=== PATIENT | male | born 1985 | race Two or more races ===

== ENCOUNTER 2017-03-07 09:13 | Inpatient (IN) | payer OTHER ==
[~2017-03-07] VITALS: Ht 154.9 cm; Wt 100.7 kg
--- NOTE | ~2017-03-07 | INDIVTXPLN ---
"PATIENT: SILVIO ADHIKARI | | [facility] UNIT #: [id number] | [address] AGE/SEX: 31 M : 83 | [address] | [place] [address] ADMIT/REG DATE: 03/07/17 | ROOM: [facility] LOC: ADTC | ADTC | Individualized Treatment Plan Date: 03/13/17 Problem Statement/Issue Identified: Client continues to use alcohol &/or drugs despite ongoing negative consequences, and he did not reach out to anyone for help, but instead continued to drink/use. Goal: Client will learn how to identify negative consequences of his addiction, attend AA/NA meetings and meet men in recovery. Objectives/Activities to achieve goal: 1. Client is to complete the How to Get Started packet, process it with counselor and selected pages in group. Due Date:03/15/17 Complete: Incomplete: 2. Client is to complete Step 1, process it with counselor and selected pages in group. Due Date:03/20/17 Complete: Incomplete: 3. Client is to attend AA/NA meetings, ask for and get at least 5 names and numbers of men in recovery and share that list with counselor. Due Date:04/04/17 Complete: Incomplete: Client signature Date Counselor signature Date Outcome/Measurement of Progress Towards Goal: Counselor's signature Date "
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
--- NOTE | ~2017-03-07 | INDIVTXPLN ---
"PATIENT: SILVIO ADHIKARI | | [facility] UNIT #: [id number] | [address] AGE/SEX: 31 M : 83 | [address] | [place] [address] ADMIT/REG DATE: 03/07/17 | ROOM: [facility] LOC: ADTC | ADTC | Individualized Treatment Plan Date: 03/27/17 Problem Statement/Issue Identified: Client needs to address criminal thinking, which may help him to identify relapse warning signs and develop a plan to deal with them as they arise, so he can learn to maintain his recovery. Goal: Client will learn how to identify criminal thinking, which will also help him to identify relapse triggers and make a plan of how to maintain his recovery. Objectives/Activities to achieve goal: 1. Client is to complete the My Con Game packet, and process it with counselor. Due Date:04/04/17 Complete: Incomplete: 2. Client is to complete the My Change Plan packet and process it with counselor. Due Date:04/06/17 Complete: Incomplete: 3. Client is to complete the Recovery Management packet, and process what he learns from it with his counselor. Due Date:04/06/17 Complete: Incomplete: Client signature Date Counselor signature Date Outcome/Measurement of Progress Towards Goal: Counselor's signature Date "
--- NOTE | ~2017-03-07 | TXPLANREV ---
"PATIENT: SILVIO ADHIKARI | | [facility] UNIT #: [id number] | [address] AGE/SEX: 31 M : 83 | [address] | [place] [address] ADMIT/REG DATE: 03/07/17 | ROOM: [facility] LOC: ADTC | ADTC | Treatment Plan/Staffing Review Date: 03/27/17 Treatment plan was reviewed and determined appropriate as written: Yes Treatment plan was reviewed and the following changes/addition/deletions are necessary: Client is to continue working on treatment plan assignments. He is working on feelings letters. He will begin working on relapse prevention. Discharge plans were reviewed and determined appropriate as previously documented: No Discharge plans were reviewed and determined to be as follows: Client will benefit from going to sober living, but plans to return home. He will be recommended to do aftercare, attend AA/NA meetings, as well as to get and call a sponsor on a regular basis. Other pertinent issues discussed during this staffing review include: None at this time. Staff Present: Dacia Parmar PRIMARY COUNSELOR: Fauzia Saha Client Signature Counselor Signature Date Time "
--- NOTE | ~2017-03-07 | TXPLANREV ---
"PATIENT: SILVIO ADHIKARI | | [facility] UNIT #: [id number] | [address] AGE/SEX: 31 M : 83 | [address] | [place] [address] ADMIT/REG DATE: 03/07/17 | ROOM: [facility] LOC: ADTC | ADTC | Treatment Plan/Staffing Review Date: 03/20/17 Treatment plan was reviewed and determined appropriate as written: Yes Treatment plan was reviewed and the following changes/addition/deletions are necessary: Client is to continue working on treatment plan assignments. He is working on his feelings letters. Discharge plans were reviewed and determined appropriate as previously documented: No Discharge plans were reviewed and determined to be as follows: Client has been accepted into the [facility], but he is backing out, and stated he doesn't have any money for a deposit, so will be speaking to his audit officer. He will also be recommended to attend 3-5 AA/NA meetings, attend aftercare in outpatient treatment, as well as to get and call a sponsor on a regular basis. Other pertinent issues discussed during this staffing review include: None at this time. Staff Present: Dacia Parmar PRIMARY COUNSELOR: JOVON Viera Client Signature Counselor Signature Date Time "
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
--- NOTE | ~2017-03-07 | TXPLANREV ---
"PATIENT: SILVIO ADHIKARI | | [facility] UNIT #: [id number] | [address] AGE/SEX: 31 M : 83 | [address] | [place] [address] ADMIT/REG DATE: 03/07/17 | ROOM: [facility] LOC: ADTC | ADTC | Treatment Plan/Staffing Review Date: 04/03/17 Treatment plan was reviewed and determined appropriate as written: Yes Treatment plan was reviewed and the following changes/addition/deletions are necessary: Client is to continue working on treatment plan assignments. He is working on relapse prevention. Discharge plans were reviewed and determined appropriate as previously documented: Yes Discharge plans were reviewed and determined to be as follows: Client is fully aware he is being recommended to go to sober living, and that the [facility] did have an opening for him, but he refused. He is also recommended to attend aftercare here with Isaac Angel, beginning on 04/11 @ 9:00. He is to attend 3-5 AA/NA meetings per week, as well as to get and call a sponsor on a regular basis. Other pertinent issues discussed during this staffing review include: None at this time. Staff Present: Dacia Parmar PRIMARY COUNSELOR: JOVON Viera Client Signature Counselor Signature Date Time "
--- NOTE | ~2017-03-07 | INDIVTXPLN ---
"PATIENT: SILVIO ADHIKARI | | [facility] UNIT #: [id number] | [address] AGE/SEX: 31 M : 83 | [address] | [place] [address] ADMIT/REG DATE: 03/07/17 | ROOM: [facility] LOC: ADTC | ADTC | Individualized Treatment Plan Date: 03/20/17 Problem Statement/Issue Identified: Client has learned to deny or stuff feelings; needs to learn to identify and process feelings in a clean/sober manner. Goal: Client will learn how to identify and express feelings in a healthy, clean/sober manner. Objectives/Activities to achieve goal: 1. Client is to write feelings letters to his girlfriend, parents and kids, all separately, and process them with counselor and in family group, if able. Due Date:03/30/17 Complete: Incomplete: Client signature Date Counselor signature Date Outcome/Measurement of Progress Towards Goal: Counselor's signature Date "
--- NOTE | 2017-03-07 10:36 | NUR ---
ADMISSION NOTE Rights/Responsibilities: Copy given and explained to client. Signed and accepted by client. Client oriented to physical lay out of the ADTC unit, given Big Book and admission packet. A Gustabo was assigned. Nitin Client is a 31yr old single male. Referred by probation. Brought to tx by s/o from home in [place], [place]. DOC, Meth, last used 01/05/17, gram daily. No allergies, No meds. S/O will participate in tx. Was searched no contraband found. Initial paperwork given and guidelines gone over. Doctor has been notified.
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
--- NOTE | 2017-03-07 19:06 | NUR ---
Education 1HR: Clt attended lecture given by counselor on boundaries.
--- NOTE | 2017-03-07 22:21 | NUR ---
Tech note: Client did not go on a walk with us as he was getting checked into his room. He was seen by the DR, went to an onsite NA meeting and gave his first intro. SE; entering treatment
--- NOTE | 2017-03-08 04:05 | NUR ---
Bed note: Client was in bed motionless, with eyes closed at all bed checks.
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
--- NOTE | 2017-03-08 15:28 | NUR ---
Tech Note: Client participated in Spiritual Enrichment in the morning and went for an outdoor walk in the afternoon. Client stated that he is working on, "How to Get Started in Treatment."
--- NOTE | 2017-03-08 15:41 | NUR ---
Education 1 Hour: Client watched the video, "Doing a 4th and 5th Step" by Yana Dsouza.
--- NOTE | 2017-03-08 16:07 | NUR ---
Step education/1 hr/ Focus was on step 11 Sought through prayer and meditation to improve conscious contact with God,praying for his will for us and the power to carry that out. Each person completed a set of questions then we discussed. This person participated.
--- NOTE | 2017-03-08 19:12 | NUR ---
Education 1HR: Clt watched half of video "Pleasures Unwoven" with staff present.
--- NOTE | 2017-03-08 23:06 | NUR ---
Tech note: Clt played a game for rec, attended GM and onsite AA mtg. SE was AA mtg
--- NOTE | 2017-03-09 04:24 | NUR ---
Bed Note: Clt lay motionless in bed with eyes closed showing no distress at last two bed checks. The first bed check clt was awake in bed.
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
--- NOTE | 2017-03-09 13:00 | NUR ---
PEER REVIEWS 1 HR: Clt participated in peer reviews and took a risk to give open and honest feedback to those receiving a review.
--- NOTE | 2017-03-09 13:03 | NUR ---
Tech Note: Client is working on Getting Started.
--- NOTE | 2017-03-09 13:18 | NUR ---
Morning Group, /12 ratio, 1.5 hours, Client attended and actively participated in group. Client offered feedback to peers.
--- NOTE | 2017-03-09 15:33 | NUR ---
Education Note: Client watched 2nd half of Pleasure Unwoven.
--- NOTE | 2017-03-09 22:23 | NUR ---
Tech note : Client watched movies, played games with peers and walked to an offsite AA meeting.
--- NOTE | 2017-03-10 04:08 | NUR ---
Bed note: Client was in bed with eyes closed and no distress at all bed checks.
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
--- NOTE | 2017-03-10 12:26 | NUR ---
FAMILY CONTACT: A call was placed to his g/f and a message was left w/ a request that she return my call.
--- NOTE | 2017-03-10 16:28 | NUR ---
Tech Note: Client attended N.A.Panel and is working on Step 1. Client also went on a walk today.
--- NOTE | 2017-03-10 22:17 | NUR ---
Tech note : Client worked on [employer], [employer] or watched sports for rec this evening. Client walked to an offsite AA meeting.
--- NOTE | 2017-03-11 04:06 | NUR ---
Bed note: Client was in bed with eyes closed with no distress at all bed checks
--- NOTE | 2017-03-11 16:41 | NUR ---
Tech Note: Client stated that he is working on Step One.
--- NOTE | 2017-03-11 22:43 | NUR ---
tech note: Client attended onsite AA Panel & CAR SHAKEOUT OPERATOR meeting.Client participated in Community Clean & watched tv. SE: nap.
--- NOTE | 2017-03-12 04:30 | NUR ---
tech note: client was motionless in no distress at all bed checks.
--- NOTE | 2017-03-12 10:18 | NUR ---
Tech Notes: Client is working on Step 1
--- NOTE | 2017-03-12 11:03 | NUR ---
Education Note: Client watched video for education today.
--- NOTE | 2017-03-12 11:30 | NUR ---
GROUP 1.5 HR/ 11:1 Clients heard peer share GS packet and this client was confrontive of peer and wishes he would of taken to treatment at age 20 when there.
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
--- NOTE | 2017-03-12 16:00 | NUR ---
RECOVERY 101 1 HR/ All clients participated in discussing what are the fundamentals of what they learn at AA/NA meetings that will help them succeed in recovery such as meetings, sponsor, home group, working steps, service work, attending functions, slogans/acronyms as tools, etc. This client was involved.
--- NOTE | 2017-03-12 19:15 | NUR ---
Education: 1 Hour. Client attended "Communications" lecture presented by staff.
--- NOTE | 2017-03-12 23:32 | NUR ---
Client attended N.A.Meeting and went on a walk for rec. SE: Walk
--- NOTE | 2017-03-13 04:21 | NUR ---
Bed note: Client was in bed with eyes closed with no distress at all bed checks
--- NOTE | 2017-03-13 11:30 | NUR ---
GROUP 1.5 HRS. 1:9 Group discussion included issues of discharge planning and fear of leaving. This client stated he cannot go to [facility] due to his kids. He was confronted that he will lose his kids anyway if he does not stay clean. Client owned that he has criminal thinking in terms of dealing to pay child support. He shared that he did remain abstinent for a period but was still dealing so was confronted on staying in same lifestyle.
--- NOTE | 2017-03-13 14:00 | NUR ---
CASE MAN: Eliza's PO was called, and we discussed clt's aftercare. We made the decision he will be recommended to go to sober living until he finds and holds a job for a period of at least 60 days.
--- NOTE | 2017-03-13 15:00 | NUR ---
IS 1 HR: Processed eliza's BPS. He went into detail about his family life, and most of the people he is wanting to "protect" are his nephews. He belongs to a well know family in town, and several have gone or are in correction, so he feels the need to help take care of the kids. Eliza heard it's too dangerous for his recovery to worry about them or anyone else, and that he needs to take care of himself and his own children. 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 He did not argue at all.
--- NOTE | 2017-03-13 15:42 | NUR ---
Tech Note: Client participated in light stretching for monring exercise and went for an outdoor walk in the afternoon. Client followed programming.
--- NOTE | 2017-03-13 19:22 | NUR ---
Education note: 1 hour watched video "enabler".
--- NOTE | 2017-03-13 19:32 | NUR ---
education note: 1 hour lecture by [facility] on hiv/aid/std. plus clients wwere tested for HIV.
--- NOTE | 2017-03-13 22:08 | NUR ---
Tech note: Client went for a long walk for rec, participated in guided meditation and attended an onsite AA meeting.
--- NOTE | 2017-03-14 05:30 | NUR ---
Bed note : Client was in bed with eyes closed and no movement at all bed checks.
--- NOTE | 2017-03-14 11:30 | NUR ---
GROUP 1.5 HRS. 1:10 Clients oriented new peer to purpose and rules of group. Peers processed from HOW TO GET STARTED IN TREATMENT and step 1 assignments to identify betraying values and effects on others. This client also had assignment to process but time did not permit.
--- NOTE | 2017-03-14 13:42 | NUR ---
Tech Note: Outside speaker Portillo Hicks spoke at 1300. Client attended and is working on Feelings Letters.
--- NOTE | 2017-03-14 17:28 | NUR ---
SPIRITUAL EDUCATION 1 HR. Topics today were clarifying the differences between spirituality and jehovah's witness, and playing the spiritual challenge game where they are asked thought provoking open ended questions. It is meant to inspire spiritual line of thought.
--- NOTE | 2017-03-14 22:42 | NUR ---
Tech Note : Client participated in rec by playing catch phrase and attended an onsite NA meeting.
--- NOTE | 2017-03-14 23:40 | NUR ---
Education: 1 Hour. Client attended "Disease Concept" presented by counselor.
--- NOTE | 2017-03-15 05:37 | NUR ---
Bed Note: Client was motionless with eyes closed at all bed checks.
--- NOTE | 2017-03-15 10:45 | NUR ---
Tech Note: Client participated in light stretching for morning exercise. Client stated that he is working on Step One. Client was identified during community meeting as one of those who was calling names about a male peer. Client did own the behavior and apologize.
--- NOTE | 2017-03-15 13:38 | NUR ---
PEER REVIEWS 1 HR: Clt participated in peer reviews and took a risk to give open and honest feedback to those receiving a review. The last half hour of group clients talked about loved ones and dying.
--- NOTE | 2017-03-15 15:48 | NUR ---
Education 1 Hour: Client heard from a member of the recovery community who shared his experience, strength and hope.
--- NOTE | 2017-03-15 16:36 | NUR ---
Step Education 1 hr/ Focus was on step 12 "having had a spiritual awakening", each person completed a set of questions on paper and then we discussed. This client participated.
--- NOTE | 2017-03-15 19:42 | NUR ---
Tech note: client was off the unit for [employer] banquet and speaker event
--- NOTE | 2017-03-16 11:57 | NUR ---
Group 1.5 Hr Ratio 1:10/Topics today were orientating a new member to group rules and goals, a GS packet and a getting started packet. Client shared how he could relate to what peers were sharing from assignments and issues.
--- NOTE | 2017-03-16 13:48 | NUR ---
Tech Note: Client with with group on an outdoor walk. Client is working on Feelings Letters.
--- NOTE | 2017-03-16 16:01 | NUR ---
Education Note: Client watched "How to Sabotage Your Treatment"
--- NOTE | 2017-03-16 16:33 | NUR ---
PEER REVIEWS 1.0 HR: Clt participated in peer reviews and took a risk to give open and honest feedback to those receiving a review.
--- NOTE | 2017-03-16 22:58 | NUR ---
TECH NOTE: Client participated in reading [employer], watched tv/movies. SE: TV
--- NOTE | 2017-03-17 04:05 | NUR ---
Bed Note: Clt lay motionless in bed with eyes closed showing no distress at all bed checks.
--- NOTE | 2017-03-17 13:50 | NUR ---
IS 1 HR: Clpritesh shared a letter he's written to his "homies" in the gang. It was more of a love letter about how much they mean to him and how much he thanks them for all they've done for him. He did share in it that he needs to let them go, but did not set any boundaries. WE discussed how important it is for him to make the decision as to which life he wants to live, as he is definately living a double life. He is to write feelings letters to his family now.
--- NOTE | 2017-03-17 15:15 | NUR ---
Tech Note: Client had an appt with his counselor and is working on Feelings Letters. Also had visitors.
--- NOTE | 2017-03-17 22:55 | NUR ---
TECH NOTE: Client played a game for REC, attended off site AA meeting, watched TV/movies SE: all day
--- NOTE | 2017-03-18 04:48 | NUR ---
Bed Note: Clt lay motionless in bed with eyes closed showing no distress at all bed checks.
--- NOTE | 2017-03-18 15:21 | NUR ---
Tech Note: Client participated in Big Book and stated that he is working on writing Feelings Letters. Client received visitors.
--- NOTE | 2017-03-18 22:56 | NUR ---
Tech Note: Client attended A.A.Panel and participated in community clean. Client also attended the END TRIMMER Meeting. SE:AMBER
--- NOTE | 2017-03-19 04:51 | NUR ---
Client was motionless with eyes closed at all bed checks.
--- NOTE | 2017-03-19 10:21 | NUR ---
Tech notes: Client is working on Fl's
--- NOTE | 2017-03-19 15:43 | NUR ---
Morning Group, 1.5 hours, 12/16 Clients all participated in 2 family sculptures with role-playing, feedback, and how they related.
--- NOTE | 2017-03-19 16:05 | NUR ---
RECOVERY EDUCATION 1 HR. Todays topic was on denial; good, bad, and levels, life problems being 85 percent of recovery, and distorted thinking patterns that can keep us stuck.
--- NOTE | 2017-03-19 16:30 | NUR ---
Education note: Client watched video "[address]mare on [address]"
--- NOTE | 2017-03-19 18:43 | NUR ---
Education: 1 Hour. Client attended "Feelings" lecture given by staff.
--- NOTE | 2017-03-19 22:08 | NUR ---
Tech note: Client participated in rec by playing [employer] outside. Client attended an onsite NA meeting.
--- NOTE | 2017-03-20 04:14 | NUR ---
BED NOTE: client was in bed, motionless with eyes closed all three bed checks.
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
--- NOTE | 2017-03-20 16:07 | NUR ---
Relapse Prevention, 12/13 ratio, 1.0 hours, Client attended and actively participated in relapse prevention education which focused on personal reactions to high risk situtations such as personal reactions vs. personal responses, addictive thinking, irresponsible thinking, addictive behavior, irresponsible behavior, instant gratification, and emotional consequences to thoughts and actions.
--- NOTE | 2017-03-20 16:33 | NUR ---
Tech Note: Client listened to speaker Gregg share his experience, strength and hope. Client is working on Feelings Letters.
--- NOTE | 2017-03-20 19:32 | NUR ---
Education : 1 hour lecture given by counselor on feelings.
--- NOTE | 2017-03-20 22:14 | NUR ---
Tech note: Client played catchphrase for rec, participated in guided meditation and attended AA meeting. SE:
--- NOTE | 2017-03-21 04:23 | NUR ---
Bed note: client was in bed with eyes closed and no distress at all bed checks
--- NOTE | 2017-03-21 10:03 | NUR ---
Tech notes: Client is working on Fl's
--- NOTE | 2017-03-21 11:30 | NUR ---
GROUP 1.5 HRS. 1:10 Group discussion included feelings letter to mom, HOW TO GET STARTED IN TREATMENT and step 1 ASSIGNMENTS. This client offered appropriate feedback to peers and suggestions as he admits he did not follow before and always relapsed.
--- NOTE | 2017-03-21 13:29 | NUR ---
Education note: Client watched video
--- NOTE | 2017-03-21 16:27 | NUR ---
SPIRITUAL EDUCATION 1 HR. Todays topic was the ADDICTIVE SELF vs. SPIRITUAL SELF. We held discussion on who we are in our addiction vs who we are in recovery and contrasted the two.
--- NOTE | 2017-03-21 18:33 | NUR ---
Education: 1 hour lecture on self esteem given by counselor
--- NOTE | 2017-03-21 22:48 | NUR ---
Client did beads for rec and attended N.A.Meeting. SE: [place]
--- NOTE | 2017-03-22 03:59 | NUR ---
Bed note: client was in bed with eyes closed and no distress at all bed checks.
--- NOTE | 2017-03-22 11:49 | NUR ---
Group 1.5 Hr Ratio 1:10/Topics today were a Getting Started packet, a Relapse prevention and a Self worth packet. Client shared how he could relate to what clients were sharing from assignments.
--- NOTE | 2017-03-22 15:26 | NUR ---
Tech Note: Client participated in Spiritual Enrichment in the morning and went for an outdoor walk after lunch. Client stated that he is working on writing Feelings Letters.
--- NOTE | 2017-03-22 16:00 | NUR ---
IS 1 HR: Eliza shared from his Step 1. He needs to go back and add specific things to pages 10-11. We discussed him going home vs him going to sober living. He heard his PO wanted him to follow recommendation, but he is choosing not to go. He also heard she will be told this, and whatever she does w/ it, is up to her. He stated he'll take that chance, and went into several "reasons" he needs to go home.
--- NOTE | 2017-03-22 16:15 | NUR ---
Education 1 Hour: Client heard a presentation on cross addiction.
--- NOTE | 2017-03-22 17:23 | NUR ---
Step ed. 1 hr/ focus was on step one and powerlessness. Each person answered a set of questions on paper and then we discussed out loud. This client participated.
--- NOTE | 2017-03-22 23:11 | NUR ---
TECH NOTE: Client did newcommer bookmarks for REC, participated in guided meditation, and attended AA meeting. SE: meeting with counselor
--- NOTE | 2017-03-23 01:21 | NUR ---
1 HR EDUCATION: Client watched a video "Say Yes to Life" by Father Robert Stern
--- NOTE | 2017-03-23 04:41 | NUR ---
Bed Note: CLt lay motionless in bed with eyes closed showing no distress at all bed checks.
--- NOTE | 2017-03-23 10:50 | NUR ---
CASE MAN: An email was sent to [facility]'s PO, who was informed he refused to go the [facility], but his aftercare recommendation will remain that he go to sober living.
--- NOTE | 2017-03-23 13:34 | NUR ---
Morning Group, 12/06, 1.5 hours, Client attended and actively participated in group session. Client offered advise to his peers.
--- NOTE | 2017-03-23 14:58 | NUR ---
PEER REVIEWS 1.5 HRS: Clt participated in peer review process and took a risk to give open and honest feedback.
--- NOTE | 2017-03-23 16:22 | NUR ---
Tech Note: Clt watched "Relapse" for afternoon video. Clt is working on Feelings Letters.
--- NOTE | 2017-03-23 22:41 | NUR ---
Tech note: Client watched tv and movies.
--- NOTE | 2017-03-24 05:21 | NUR ---
Bed note : Client was in bed motionless with eyes close at all bed checks.
--- NOTE | 2017-03-24 15:36 | NUR ---
Tech Note: Client attended A.A.Meeting at [facility] and [place] and then helped with the clubhouse cleaning, ate lunch, and listened to a speaker. Client is working on [employer]
--- NOTE | 2017-03-24 20:44 | NUR ---
tech note: Client played a game for recreation & attended offsite AA meeting.Client talked on the phone & watched movie. SE: Movie.
--- NOTE | 2017-03-25 05:21 | NUR ---
Bed note: Client was in bed motionless with eyes closed at all bed checks. client was up at 01;15 for a drink.
--- NOTE | 2017-03-25 16:20 | NUR ---
TECH NOTE: Client participated in Chapter 5 of Big Book study, attended study time, and watched tv/movies
--- NOTE | 2017-03-25 23:01 | NUR ---
tech note: client attended AA Panel & the MANAGER PARK meeting. Client participated in Community Clean & talked on the phone. Client has 60 days clean. SE: All Day.
--- NOTE | 2017-03-26 04:37 | NUR ---
Bed Note: Clt lay motionless in bed with eyes closed showing no distress at all bed checks.
--- NOTE | 2017-03-26 11:13 | NUR ---
Tech notes: Client is working on Fl's
--- NOTE | 2017-03-26 11:30 | NUR ---
GROUP 1.5 HR/ 9:1 Clients all heard peers share packets/shame booklet and this client did give feedback, related to wall and the need to love oneself.
--- NOTE | 2017-03-26 15:40 | NUR ---
Education note: Client attended speaker for education, Evie on Tobacco
--- NOTE | 2017-03-26 16:00 | NUR ---
Recovery 101 1 hr/ Clients all participated in reading, highlighting and discussing the Big Book on areas about honest, acceptance, living in problem vs living in solution, resentments, 1/2 measures, and the 12 promises.
--- NOTE | 2017-03-26 18:13 | NUR ---
Education: 1 hour lecture given by counselor on "forgiveness"
--- NOTE | 2017-03-26 22:26 | NUR ---
Tech note : Client went on a walk for rec and attended an onsite NA meeting. SE; Education
--- NOTE | 2017-03-27 04:15 | NUR ---
Bed note: Client was in bed with eyes closed and no distress at all bed checks.
--- NOTE | 2017-03-27 12:50 | NUR ---
A.M. 1.5 hr res group/ratio 1:10/ Group heard a getting started and a goodbye letter to addiction. Discussed having resentment towards self, how kids are forgiving, and we oriented 3 new group members. This client related and he said he knows he needs to do things different so was asked for an example. He said he knows he needs to set boundaries and not be around old friends if they are using. He said he thinks instead of going back to [facility] he will try the [facility].
--- NOTE | 2017-03-27 13:17 | NUR ---
Tech Note: Client participated in light stretching for morning exercise and went for an outdoor walk in the afternoon. Client stated that he is working on writing Feelings Letters.
--- NOTE | 2017-03-27 13:35 | NUR ---
Education One Hour: Client heard a presentation on Sexually Transmitted Disease.
--- NOTE | 2017-03-27 16:10 | NUR ---
Relapse Prevention Education, 1.0 hours, Client attended and actively participated in relapse prevention education which focused on a Relapse Prevention Quiz and discussion over the answers.
--- NOTE | 2017-03-27 20:28 | NUR ---
educatio note: 1 hour lecture by counselor on" what ruiz are you willing to pay"
--- NOTE | 2017-03-27 22:43 | NUR ---
Tech note: Client attended the Alumni meeting, participated in guided meditation and attended an onsite AA meeting. SE; AA meeting
--- NOTE | 2017-03-28 04:56 | NUR ---
Bed note: Client was in bed with eyes closed and motionless at all bed checks.
--- NOTE | 2017-03-28 09:04 | NUR ---
IS 1 HR: Clt shared his feelings letter to his g/f. He didn't have many feelings in it, but did own some of his behaviors. He shared about some things from his past that he's been mind racing over, and stated he writes it down when he can't stop thinking about it. He heard those are good coping techniques, and that he can also discipline himself and only allow mind racing for 10 minutes at a particular time of the day. Any other time, he is to tell himself it's not time yet.
--- NOTE | 2017-03-28 10:37 | NUR ---
Tech notes: Client is working on 3 packets and mtg with marlon
--- NOTE | 2017-03-28 11:30 | NUR ---
GROUP 1.5 HRS. 1:11 Discussion included the need for appropriate boundaries on the unit and working towards recovery/new behaviors, not addiction/old behaviors. Clients also discussed the effects on addiction as peers had parents that were addicts and then became the parent who addiction effected their own kids. This client offered some personal feedback and identified the change in the group over the last week.
--- NOTE | 2017-03-28 12:36 | NUR ---
Education note: Client had education by [facility]
--- NOTE | 2017-03-28 17:23 | NUR ---
SPIRITUAL EDUCATION 1 HR. Todays topics were orienting newcomers, and taking a look at Gallo Nicholas's 5 SECRETS TO SUCCESS which include a look at the miracles of the human body as blessings.
--- NOTE | 2017-03-28 20:56 | NUR ---
education: 1 hour video on unresolved anger and group discussion with counselor
--- NOTE | 2017-03-28 22:08 | NUR ---
Tech note: Client worked on beaded project and attended an onsite NA meeting. SE; NA meeting
--- NOTE | 2017-03-29 04:02 | NUR ---
Bed note: Client was in bed with eyes closed and no distress at all bed checks.
--- NOTE | 2017-03-29 10:22 | NUR ---
Tech Note: Client participated in Spiritual Enrichment. Client stated that he is working on, "My Change Plan."
--- NOTE | 2017-03-29 11:30 | NUR ---
AM GRP 1.5 HRS, Ratio 1:11/ Clt participated in grp discussion and could relate to how his addiction hurt his kids and how important it is to stay clean and work recovery. His feedback is that it always sounds so much easier than it actually is.
--- NOTE | 2017-03-29 13:38 | NUR ---
Education 1 Hour: Client heard a presentation from a member of the recovery community who shared his experience, strength and hope.
--- NOTE | 2017-03-29 16:32 | NUR ---
FAMILY EDUCATION 3 HRS. Client attended alone and took part in the discussion on the disease concept. Client shared chemical history and the consequences.
--- NOTE | 2017-03-29 23:34 | NUR ---
Tech Note: Client attended Guided Meditation and A.A.Meeting. SE: Family
--- NOTE | 2017-03-30 04:24 | NUR ---
Eduction: 1 Hour. Client attended "Unresolved Anger" video & discussion presented by staff.
--- NOTE | 2017-03-30 11:30 | NUR ---
GROUP 1.5 HR/ 11:1 Clients all reviewed rules and heard new member share about himself. This client was attentive and gave some feedback, asked good questions.
--- NOTE | 2017-03-30 13:00 | NUR ---
PEER REVIEWS 1.5 HRS: Clt participated in peer review process and recieved his own. He heard he has a wall, has trust issues, is scared of letting go of his old lifestyle, caught up in his OG status, stuck in the past, focused on helping others instead of himself, bottles up feelings, goofs around, and has guilt. He felt ashamed, hurt and mad.
--- NOTE | 2017-03-30 16:21 | NUR ---
Tech Note: Client participated in group walk for exercise and watched "Recovery Issues Part 3" for afternoon video. Client is working on his Change Plan.
--- NOTE | 2017-03-30 16:32 | NUR ---
Tech Note: Nica, from probation, came in and spoke with client.
--- NOTE | 2017-03-30 22:46 | NUR ---
TECH NOTE: Client participated in reading guidelines and watched tv/movies. attended optional off site AA meeting SE: basket ball game on TV
--- NOTE | 2017-03-31 04:09 | NUR ---
Bed Note: Clt lay motionless in bed with eyes closed showing no distress at all bed checks.
--- NOTE | 2017-03-31 12:46 | NUR ---
IS 1 HR: Eliza's g/f was scheduled to come in, but was unable to make it, so we met and discussed his aftercare plan and how he feels that she didn't come in. He stated he isn't sure how to feel, but that he felt mad and sad. He stated he isn't sure how to talk to her about what he's been doing, so we discussed what he really needs to talk to her about. He stated he wants to be honest, but heard that sometimes brand new in recovery isn't exactly the time to tell all. He stated his PO came, and he thinks she's disappointed in him, and clt heard the aftercare recommendation is still going to sober living.
--- NOTE | 2017-03-31 16:02 | NUR ---
Tech Note: Client attended NA Panel and is working on Managing Life.
--- NOTE | 2017-03-31 20:22 | NUR ---
Tech note: Clt played a game for recreation and attended offsite AA mtg. Watched tv and used phone. SE was BBQ and nap
--- NOTE | 2017-04-01 04:35 | NUR ---
Bed Note: Clt lay motionless in bed with eyes closed showing no distress at all bed checks. Clt came out of room for a drink of water at 0049 hrs.
--- NOTE | 2017-04-01 15:45 | NUR ---
Tech Note: Client participated in Big Book Study. Client stated that he is working on, "Managing life." Client received visitors.
--- NOTE | 2017-04-01 22:41 | NUR ---
Tech Note: Clt attended AA panel, optional SHIPPING RECEIVING MANAGER mtg chairing mtg, used phone and watched tv. SE was SHIPPING RECEIVING MANAGER
--- NOTE | 2017-04-02 04:38 | NUR ---
Bed Note: Clt lay motionless in bed with eyes closed showing no distress at all bed checks.
--- NOTE | 2017-04-02 10:14 | NUR ---
Tech notes: Client is working on [employer]
--- NOTE | 2017-04-02 11:30 | NUR ---
Group 1.5 hr/10:1 Clients heard peers share packets, this client also shared 2 poems/writings about addiction and recovery. he shared about being serious about his recovery and gave feedback on finding a home group.
--- NOTE | 2017-04-02 13:30 | NUR ---
Education: Client attended education by Gilma on Infection prevention.
--- NOTE | 2017-04-02 18:11 | NUR ---
Education: 1 Hour. Client attended "Adult Children of Alcoholics" lecture presented by staff.
--- NOTE | 2017-04-02 21:00 | NUR ---
FAMILY EDUCATION 3 HRS., GROUP 2 HRS. 1:5 Client attended alone and took part in the discussion on the family roles, codependency and detachment. He identified himself as lost child. Client was quiet while peers processed feelings letters and shared only when prompted. He did offer some insightful feedback to others at that time.
--- NOTE | 2017-04-02 23:26 | NUR ---
tech note: Client attended Family Session. SE: Family.
--- NOTE | 2017-04-03 04:31 | NUR ---
BED NOTE: Client was in bed, motionless with eyes closed all three bed checks.
--- NOTE | 2017-04-03 11:30 | NUR ---
GROUP 1.5 HRS. 1:9 Client participated in orienting new peer to purpose and rules of group. Group discussion included anger and frustration at peer's disrespect and immaturity. The peer was in the other group so clients were redirected at what they can do to be a part of the solution, not part of the problem. This client was only minimally involved. When prompted he shared that he is going home tomorrow to his and kids. He advised was unable to attend family due to working. Encouraged him to have her involved in aftercare and attend Alanon and open meetings. He reports her parents were addicts that did not get in recovery.
--- NOTE | 2017-04-03 16:00 | NUR ---
Relapse Prevention, 1.0 hours, Client attended and actively participated in relapse prevention education which focused on internal and external triggers.
--- NOTE | 2017-04-03 16:35 | NUR ---
Tech Note: Client participated in Nutritional Services presentation and is working on [email or web address].
--- NOTE | 2017-04-03 22:42 | NUR ---
Education: 1 hour lecture given by counselor on co-dependency
--- NOTE | 2017-04-03 22:51 | NUR ---
Tech note: clients played catchphrase for rec, participated in guided meditation and attended AA meeting SE:leaving tomorrow
--- NOTE | 2017-04-04 04:35 | NUR ---
bed note: client was in bed with eyes closed and motionless at all bed checks.
--- NOTE | 2017-04-04 09:00 | NUR ---
FINAL SESSION 1 HR: Clt heard of the concerns of him not going to sober living, and how it can be so easy to slip back into the using and old lifestyle, even tho he finished tx. He knew this, as it happened before. Clt also heard the recommendation is for him to go to sober living, and that I had spoken to his PO about it. He completed the survey and we did his continued care plan. Clt was given a coin and completed thru tx.
--- NOTE | 2017-04-04 09:58 | NUR ---
DISCHARGE NOTE Client left tx with sister-inlaw, all personal belongings were sent with. Discharge instructions gone over and copy given.
--- NOTE | 2017-05-13 13:46 | DS ---
ADMIT: 03/07/2017 RM/LOC: [facility] MR#: [id number] [id number] [place], [place] [id number] SILVIO ADHIKARI [address] [place] [id number] General Discharge Summary SEX: M AGE: 31 : 1985 ADMISSION DATE: 03/07/2017 DISCHARGE DATE: 04/04/2017 ADMITTING DIAGNOSES: 1. Cannabis use disorder, severe. 2. Stimulant/methamphetamine use disorder, severe. 3. Alcohol use disorder, mild. 4. Tobacco use disorder, moderate. COMPLICATIONS: None. OPERATIONS: None. CLINICAL HISTORY: The patient is a 31-year-old male, readmitted to the residential care program following recent relapse on both cannabis and methamphetamine. The patient is admitted to the [facility] for the third time. His most recent treatment was in August and September of 2015. He remained clean and sober until May of 2016 when he relapsed. Readmitted at this time for treatment of his methamphetamine use disorder and cannabis use disorder. For further details of his clinical history as well as past medical history and pertinent findings on physical exam, please see dictated history and physical. LABORATORY AND X-RAY SUMMARY FROM THIS ADMISSION: None indicated, none performed. HOSPITAL COURSE: The patient was admitted to the residential care program and assigned to his primary counselor, Fauzia Saha. He remained in treatment from 03/07/2017 through 04/04/2017. While in treatment, he was involved in individual therapy and group therapy. He was also given the educational series on substance abuse and worked on many of these assignments. While in treatment, he was accepting of his substance abuse problem and worked well with the staff in both individual and group settings. He was able to complete step 1 of AA during this level of care. While in treatment, he gained more insight and a better understanding into the disease concept of addiction. He was able to identify the negative consequences of his addictions. He attended the family education and family group sessions. His girlfriend attended the family education sessions as well. While in treatment, he worked on identifying obstacles to his long-term sobriety and potential relapse triggers working on his own personal relapse prevention plan. He worked on positive thinking and developing better self-esteem. He remained in the treatment program until completion of his residential treatment goals, although he was unwilling to accept post treatment recommendations. The patient was accepted into the [facility], [address] [place] [address], but was not willing to follow through on this placement. It was recommended at treatment that he go to a [facility]. ADMIT: 03/07/2017 RM/LOC: [facility] MR#: [id number] [address] [place] [id number] SILVIO ADHIKARI [address] [place] [address] General Discharge Summary SEX: M AGE: 31 : 1985 He was referred to the outpatient treatment program where he has to do weekly sessions with Isaac Angel individual sessions. He is also to attend weekly group sessions. He is to attend 3 to 5 AA or NA meetings per week and maintain regular contact with a sponsor. He has to try not to associate or affiliate with his old gang member friends and try to work a strong program of recovery. CONDITION AT DISCHARGE: Improved. PROGNOSIS: [place] to be guarded since he did not follow through on recommendations about going to a sober living community. At dismissal, he was dismissed on no medications. Yoshi Crespo MD/ marcela JOB #: [id number] CC: Yoshi Crespo MD, Attending Physician NO FAMILY PHYSICIAN, Family Physician
== END 2017-04-04 10:02 | disposition home or self-care (01) | DRG 895 ==
LOC: ADTC 09:13
PROVIDERS: ADMIT Family Medicine
PROC: HZ34ZZZ Individual Counseling for Substance Abuse Treatment, Interpersonal (ICD-10-PCS; principal; 2017-03-07)
PROC: HZ43ZZZ Group Counseling for Substance Abuse Treatment, 12-Step (ICD-10-PCS; principal; 2017-03-07)
DX: F12.20 Cannabis dependence, uncomplicated (principal); F15.20 Other stimulant dependence, uncomplicated; F10.10 Alcohol abuse, uncomplicated; F17.210 Nicotine dependence, cigarettes, uncomplicated; Z63.72 Alcoholism and drug addiction in family; Z65.3 Problems related to other legal circumstances; Z87.828 Personal history of other (healed) physical injury and trauma